=== PATIENT | female | born 1955 | race Caucasian/White ===

== ENCOUNTER → 2018-03-08 | Outpatient (CLI) | payer MEDICARE, OTHER ==
--- NOTE | 2018-03-10 08:49 | RAD ---
DATE: 03/08/2018 EXAM: MAMMO ALMITA SCREENING BILATERAL HISTORY: Bilateral breast biopsies which were benign. No current relevant symptoms. Removal of breast implants in 1993. COMPARISON: 07/16/2009 and 05/11/2016 mammograms This study was interpreted with the benefit of Computerized Aided Detection (CAD ). Breast Density: HETERO The breast parenchyma is heterogenously dense, which could reduce sensitivity of mammography. Breast parenchyma level C. FINDINGS: Parenchymal distribution is stable. No suspicious calcific lesions, new masses, or distortion. A small mass at the posterior right inner breast is stable. IMPRESSION: BI-RADS CATEGORY: 2 BENIGN FINDING(S) RECOMMENDED FOLLOW-UP: PQRS compliance statement: Patient information was entered into a reminder system with a target due date in 1 year for the next mammogram. Mammography is a sensitive method for finding small breast cancers, but it does not detect them all and is not a substitute for careful clinical examination. A negative mammogram does not negate a clinically suspicious finding and should not result in delay in biopsying a clinically suspicious abnormality. "Our facility is accredited by the [employer] Mammography Program." DIEGOD
== END | disposition home or self-care (01) ==
LOC: MAMMO 10:33
PROVIDERS: ATTEND Physician Assistant Medical
DX: Z12.31 Encounter for screening mammogram for malignant neoplasm of breast (principal); Z87.19 Personal history of other diseases of the digestive system
CPT/HCPCS: 77063; 77067

== ENCOUNTER → 2019-04-14 | Outpatient (CLI) | payer MEDICARE, OTHER ==
--- NOTE | 2019-04-14 12:17 | RAD ---
Right shoulder AP and scapular x-rays 3 views HISTORY: Shoulder pain. FINDINGS: No fracture or dislocation of the shoulder. Mild arthrosis of the acromioclavicular joint with lateral clavicle osteophyte present. Soft tissues are unremarkable. Calcified granuloma right lung base. IMPRESSION: No acute osseous injury. Electronically signed by: Anirudh Alexander MD (04/14/2019 12:14 PM) [facility]
== END | disposition home or self-care (01) ==
LOC: RAD 11:22
PROVIDERS: ATTEND Physician Assistant
DX: M19.011 Primary osteoarthritis, right shoulder (principal); M25.711 Osteophyte, right shoulder; J84.10 Pulmonary fibrosis, unspecified
CPT/HCPCS: 73030

== ENCOUNTER → 2020-11-07 | Outpatient (CLI) | payer MEDICARE, OTHER ==
--- NOTE | 2020-11-07 10:40 | RAD ---
EXAM: Abdomen, 2 views. HISTORY: Pain. COMPARISON: None. FINDINGS: 2 views of the abdomen are obtained. There is gas and stool within the colon. There is a sm all amount of gas within the distal small bowel. There is no bowel obstruction. There is no free air. IMPRESSION: Nonspecific bowel gas pattern, without evidence of obstruction. Electronically signed by: Shayla Christian MD (11/07/2020 10:37 AM) [id number]
== END ==
LOC: PMG 09:55
PROVIDERS: ATTEND Physician Assistant
DX: R10.12 Left upper quadrant pain (principal)
CPT/HCPCS: 74019

== ENCOUNTER → 2021-07-01 | Outpatient (CLI) | payer MEDICARE, OTHER ==
--- NOTE | 2021-07-01 16:43 | RAD ---
Bilateral digital screening 2-D and 3-D (tomosynthesis) mammogram: Reason for examination: Routine screening. The patient gives a history of previous silicone breast im plant rupture with removal. Comparison is made to previous mammograms from 03/08/2018 and 05/11/2016. Bilateral mammograms in CC and oblique projections were obtained with 2-D imaging and 3-D tomosynthes is imaging and reviewed on the workstation. Interpretation was made with the benefit of CAD. Findings: Breast density: Category C. The breasts are heterogeneously dense, which may obscure small masses. There is a small oval circumscribed masses in the 2:00 region of the right breast at far posterior de pth, approximately 7 cm from the nipple. These are not significantly changed since previous mammogram s. There is a mild scarring in the posterior aspect of the right breast 12:00 region on the MLO view about the 5 cm from the nipple. This likely due to prior implant removal. There are no malignant appe aring calcifications or architectural distortion. Impression: No evidence of malignancy. There findings on the right consistent with history of silicone breast imp lant rupture and removal. ASSESSMENT: BI-RADS 2. Benign findings. Recommendations: Routine screening mammograms. This patient's information has been entered into a reminder system for the patient to be notified wit h the results of her examination and a target date for the next mammogram. Your patient's mammogram demonstrates that she has dense breast tissue (breast density category C or D), which could hide abnormalities, and if she has other risk factors for breast cancer that have bee n identified, she might benefit from supplemental screening tests that may be suggested by you as her ordering physician. Dense breast tissue, in and of itself, is a relatively common condition. Therefo re, this information is not provided to cause undue concern, but rather to raise your awareness and t o promote discussion with your patient regarding the presence of other risk factors, in addition to d ense breast tissue. Electronically signed by: Bisi Mills MD (07/01/2021 4:40 PM) [id number]
== END ==
LOC: MAMMO 10:47
PROVIDERS: ATTEND Physician Assistant
DX: Z12.31 Encounter for screening mammogram for malignant neoplasm of breast (principal)
CPT/HCPCS: 77063; 77067